=== PATIENT | female | born 1945 | race Caucasian/White ===

== ENCOUNTER 2023-08-28 06:18 | Inpatient (IN) | payer MEDICARE, OTHER, SELFPAY ==
--- NOTE | 2023-08-16 08:52 | CM ---
Addendum entered by Renate Rocha 08/16/23 09:35:
Spoke again with patient. She now prefers to have VN services initially.
Original Note:
Patient is scheduled for an elective L TKR on 08/28/23. Spoke with patient prior to surgery via telephone. Introduced role of Orthopedic Navigator. Patient reports that she lives alone in an apartment at [facility]. She currently functions
independently and uses a cane. She also has a raised toilet seat and built in shower seat. She has had VN services through [facility]. PCP is Vivek Auguste.
Discussed orthopedic program and post surgical plans. Reviewed anticipated length of stay and that goal is for her to return home at discharge. Also reviewed outpatient PT. Patient is in agreement with tentative plan and will go directly to
outpatient PT at [facility]. She states that her daughter will stay with her when she first goes home.
Patient will complete online education.
Plan: Orthopedic Navigator will remain available to assist with the care of patient and will reassess discharge needs after surgery.
[2023-08-18 13:20] VITALS: BMI 25.2
[2023-08-18 15:05] LABS: Hematocrit 39.3 % (37.0-47.0); Hemoglobin 13.6 g/dL (12.0-16.0); Mean Corp Hgb Conc. 34.6 g/dL (33.0-37.0); Mean Corpuscular Hgb 30.8 pg (27.0-31.0); Mean Corpuscular Volume 88.9 fL (81.0-99.0); Mean Platelet Volume 10.5 fL (7.4-10.4); Platelet Count 226 10^3/uL (130-400); Red Blood Cell Count 4.42 10^6/uL (4.20-5.40); Red Cell Dist. Width 13.5 % (11.5-14.5); White Blood Cell Count 5.6 10^3/uL (4.8-10.8)
[2023-08-18 15:22] LABS: ALT (SGPT) < 10 U/L (0-35); AST (SGOT) 29 U/L (14-36); Albumin 4.4 g/dl (3.5-5.0); Alkaline Phosphatase 60 U/L (38-126); Blood Urea Nitrogen 22 mg/dl (7-17); Carbon Dioxide 27 mmol/L (22-30); Chloride 104 mmol/L (98-107); Estimated Creatinine Clearance 51 ml/min; Glucose 96 mg/dl (70-99); Sodium 137 mmol/L (135-145); Total Bilirubin 0.4 mg/dl (0.2-1.3); Total Protein 7.2 g/dl (6.3-8.2); eGFR > 60.00
[2023-08-18 15:53] VITALS: BMI 25.2
[2023-08-19 11:41] LABS: Glycohemoglobin (HgbA1c) 5.8 % (4.0-5.6)
--- NOTE | 2023-08-21 13:57 | PTCARENOTE ---
Patient had questions regarding recent Monovisc injections and scheduled 08/24 for injections for macular degeneration- instructed to contact surgeons office to address these concerns.
[2023-08-28] VITALS (18 sets, daily range): BP systolic 103–148; BP diastolic 47–91; PULSE 71; O2SAT 96; BMI 25.2
[2023-08-28] MEDS: TYLENOL 650 MG PO ×3 (08:46→20:44)
[2023-08-28] MEDS: CELEBREX 200 MG PO (08:46)
[2023-08-28] MEDS: NORMOSOL-R 1000 IV (08:47)
[2023-08-28] MEDS: TYLENOL PO (12:00)
[2023-08-28] MEDS: ULTRAM PO (13:00)
[2023-08-28] MEDS: ROXICODONE 5 MG PO ×2 (13:52→17:25)
[2023-08-28] MEDS: DILAUDID 0.5 MG IV (15:24)
--- NOTE | 2023-08-28 16:30 | PTCARENOTE ---
pt admitted to room 2100 from the PACU at 1600. pt arrived awake and alert. Left knee surgical dressing w/scant drainage noted. Thigh TEDS in place, foot pumps in use. pt denies c/o left knee pains. +sensation, +movement, +pedal pulses B/L LE's.
pt oriented to room, bed controls and plan of care with verbalized understanding. tolerating liquids, due to void. will monitor.
[2023-08-28] MEDS: EFFEXOR XR 150 MG PO (18:48)
[2023-08-28] MEDS: ASPIRIN 325 MG PO (18:49)
[2023-08-28] MEDS: ANCEF 5 IV (18:49)
[2023-08-28] MEDS: ULTRAM 25 MG PO ×2 (18:50→20:45)
--- NOTE | 2023-08-28 18:54 | PTCARENOTE ---
pt assisted out of bed to bathroom with assistance of 1 and RW. pt voided large amount of urine and assisted to walk back to bed w/assist of 1 and RW. will observe.
[2023-08-28] MEDS: SENOKOT 17.1999999999999993 MG PO (20:43)
[2023-08-28] MEDS: BACTROBAN 2% OINTMENT 1 APPLIC NASAL (20:43)
[2023-08-28] MEDS: COLACE 100 MG PO (20:43)
[2023-08-28] MEDS: DECADRON 4 MG PO (20:43)
[2023-08-28] MEDS: NEURONTIN 300 MG PO (20:44)
[2023-08-28] MEDS: LIPITOR 20 MG PO (20:44)
[2023-08-28] MEDS: TORADOL 15 MG IV (20:44)
[2023-08-28] MEDS: PEPCID 20 MG PO (20:45)
[2023-08-28] MEDS: ROXICODONE 10 MG PO (20:45)
[2023-08-29] MEDS: TYLENOL PO (01:05)
[2023-08-29] MEDS: FLUSH (NSS) 2 FLUSH IV (02:29)
[2023-08-29] MEDS: ANCEF 5 IV (02:29)
[2023-08-29] MEDS: TYLENOL 650 MG PO ×3 (02:35→11:54)
[2023-08-29 03:26] VITALS: BP 99/43
[2023-08-29 07:35] VITALS: BP 112/64
[2023-08-29] MEDS: SENOKOT 17.1999999999999993 MG PO (07:56)
[2023-08-29] MEDS: COLACE 100 MG PO (07:56)
[2023-08-29] MEDS: BACTROBAN 2% OINTMENT 1 APPLIC NASAL (07:56)
[2023-08-29] MEDS: DECADRON 4 MG PO (07:56)
[2023-08-29] MEDS: MOBIC 15 MG PO (07:56)
[2023-08-29] MEDS: ASPIRIN 325 MG PO (07:56)
[2023-08-29] MEDS: EFFEXOR XR 150 MG PO (07:56)
[2023-08-29] MEDS: ULTRAM 25 MG PO ×2 (07:57→13:07)
[2023-08-29] MEDS: TORADOL 15 MG IV (07:58)
--- NOTE | 2023-08-29 08:47 | CM ---
Reviewed chart and held rounds with PT, OT and nursing. Patient admitted as planned for elective R TKR. Met with patient at bedside. Confirmed information previously obtained for assessment. Also discussed discharge plans. The plan is for patient to
return home at discharge. Her daughter will be staying with her tonight. Reviewed VN services including start of care (tentatively 08/29), services to be ordered (PT, OT, SN and APPLIED PSYCHOLOGY CHAIR) and frequency/duration of services. Options list provided and PAC
data reviewed. Patient selects VN.
Patient has a rolling walker, raised toilet seat with rails and a cane at home.
VN referral was completed and sent to [facility] through [employer] with request for start of care on 08/29. Confirmation received of their ability to accept case. customs entry clerk to fax discharge instructions to [facility] when complete.
Patient will use [facility] pharmacy for discharge prescriptions.
--- NOTE | 2023-08-29 08:52 | CM ---
Addendum entered by Renate Rocha 08/29/23 12:39:
Patient did well in therapy. Her daughter was present for OT session. patient has no concerns about going home.
Addendum entered by Renate Rocha 08/29/23 08:53:
Correction to below- patient's daughter will be staying with her for a week.
Original Note:
Reviewed chart and held rounds with PT, OT and nursing. Patient admitted as planned for elective L TKR. Met with patient at bedside. Confirmed information previously obtained for assessment. Also discussed discharge plans. The plan is for patient to
return home at discharge. Her daughter will be staying with her tonight. Reviewed VN services including start of care (tentatively 08/29), services to be ordered (PT and SN) and frequency/duration of services. Options list provided and PAC data
reviewed. Patient selects VN.
Patient has a rolling walker, shower seat, raised toilet seat with rails and a cane at home.
VN referral was completed and sent to [facility] through [facility] [facility] with request for start of care on 08/29. Confirmation received of their ability to accept case. agents' records clerk to fax discharge instructions to [facility] when complete.
Patient will use [facility] pharmacy for discharge prescriptions.+
--- NOTE | 2023-08-29 10:00 | W.PN.ORTHO ---
Today's Communication / Plan
-
d/c
Assessment
.
Distal Motor Intact: Yes
Dressing:
Clean, dry and intact.
Plan
.
Surgery / Date: Da Valencia 08/28/23
DVT Prophylaxis: Aspirin
Activity:
Out of bed.
PT/OT
Discharge Plan: Home w/ VN
Subjective
.
.:
Patient resting comfortably.
Vital Signs and Labs
.
Vital Signs and Labs:
Lab Results
08/18/23 13:35
08/18/23 13:35
Temp Pulse Resp BP Pulse Ox
98.2 F 74 16 112/64 93
08/29/23 07:35 08/29/23 07:35 08/29/23 07:35 08/29/23 07:35 08/29/23 07:35
Non-invasive Hgb result: 11.4
Physical Exam
-
HEENT: No pallor, cyanosis, or jaundice. Throat clear.
NECK: Supple. No JVD.
RESPIRATORY: Lungs clear to auscultation.
CVS: S1, S2 normal. RRR.� No murmur, rub or gallop.
ABDOMEN: Soft, non-tender. No distension. BS+/normal.
EXTREMITIES: strength equal, no calf pain with palpation
CORE FINISHER: AOx3. No focal deficits. funeral greeter grossly intact
--- NOTE | 2023-08-29 10:05 | W.DS.TRANS ---
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
-
Discharge Instructions:
Sleep Apnea Risk Low
Discharge Diagnosis/Procedures L TKA Dr. Valencia 08/28/23
Diet As tolerated
Activity With Walker
Driving Restrictions No driving
Bathing Restrictions OK to Shower
Other Services PT,VN
Instructions:
Stand-Alone Forms: Total Hip/Knee Replacement D/C
Changes to Home Medications: Yes
Discharge Medications:
DC Medications w/original date entered in [facility]
vitamin B complex 1 tab PO DAILY Supplement 09/11/20
atorvastatin 20 mg tablet 20 mg PO HS High Cholesterol 08/16/23
calcium carbonate 600 mg-vitamin D3 20 mcg (800 unit) chewable tablet (Caltrate 600 plus D) 1 tab PO BID Supplement 08/16/23
ibuprofen 200 mg tablet 600 mg PO Q6H PRN PAIN 08/16/23
venlafaxine 150 mg capsule,extended release 24 hr 150 mg PO DAILY Mental Health/Anxiety 08/16/23
vit C 250 mg-vit E 90 mg-zinc 40 mg-copper 1 [id number]-[id number]-[id number] capsule (PreserVision AREDS-2) 1 tab PO BID Supplement 08/16/23
mupirocin 2 % topical ointment 1 applic topical BID infection prevention #1 tube 08/18/23
acetaminophen 325 mg capsule (Tylenol) 650 mg PO QID #2 caps 08/29/23
aspirin 325 mg tablet 325 mg PO DAILY blood clot prevention #1 tab 08/29/23
dexamethasone 4 mg tablet 4 mg PO BID inflammation #6 tabs 08/29/23
docusate sodium 100 mg capsule (Colace) 100 mg PO BID stool softner #1 cap 08/29/23
famotidine 20 mg tablet 20 mg PO HS GI prophylaxis #30 tabs 08/29/23
gabapentin 300 mg capsule 300 mg PO HS sleep/pain #10 caps 08/29/23
magnesium hydroxide 400 mg/5 mL oral suspension (Milk of Magnesia) 30 ml PO HS PRN Constipation #1 mL 08/29/23
meloxicam 15 mg tablet 15 mg PO DAILY anti-inflammatory #14 tabs 08/29/23
oxycodone 5 mg tablet 5 - 10 mg PO Q6HPRN PRN 1 tab moderate-2 tabs severe pain #30 tabs 08/29/23
sennosides 8.6 mg tablet (Senokot) 17.2 mg PO BID laxative #2 tabs 08/29/23
Home Medication Changes
dexamethasone 4 mg tablet 4 mg PO BID inflammation #6 tabs 08/29/23
famotidine 20 mg tablet 20 mg PO HS GI prophylaxis #30 tabs 08/29/23
gabapentin 300 mg capsule 300 mg PO HS sleep/pain #10 caps 08/29/23
meloxicam 15 mg tablet 15 mg PO DAILY anti-inflammatory #14 tabs 08/29/23
oxycodone 5 mg tablet 5 - 10 mg PO Q6HPRN PRN 1 tab moderate-2 tabs severe pain #30 tabs 08/29/23
Pending Results: No
[2023-08-29 10:19] VITALS: BP 130/77
[2023-08-29 11:23] VITALS: BP 148/71
[2023-08-29 12:25] VITALS: BP 140/110; PULSE 70; O2SAT 93
== END 2023-08-29 13:39 | disposition home health service (06) | DRG 470 ==
LOC: 2 SOUTH 06:18
PROVIDERS: ADMITTING PHYSICIAN Specialist; FAMILY PHYSICIAN Family Medicine
PROC: 0SRD0J9 Replacement of Left Knee Joint with Synthetic Substitute, Cemented, Open Approach (ICD-10-PCS; 2023-08-28)
DX: M17.12 Unilateral primary osteoarthritis, left knee (principal); I10 Essential (primary) hypertension; E78.5 Hyperlipidemia, unspecified; M85.859 Other specified disorders of bone density and structure, unspecified thigh; G57.91 Unspecified mononeuropathy of right lower limb; J44.9 Chronic obstructive pulmonary disease, unspecified; F32.A Depression, unspecified; F41.9 Anxiety disorder, unspecified; Z87.891 Personal history of nicotine dependence
CPT/HCPCS: 36415; 73560; 80053; 83036; 85027; 87070; 93005; 97110; 97116; 97162; 97166; 97530; C1713; C1776

== ENCOUNTER → 2023-10-04 11:55 | Outpatient (REF) | payer MEDICARE, OTHER, SELFPAY ==
[2023-10-04 12:57] LABS: % Basophils 1.4 % (0-2); % Eosinophils 14.1 % (0-6); % Immature Granulocytes 0.2 % (0-0.5); % Lymphocytes 30.6 % (20.5-51.1); % Monocytes 11.2 % (1.7-9.3); % Neutrophils 42.5 % (42.2-75.2); Absolute Basophils 0.1 10^3/uL (0-0.2); Absolute Eosinophils 0.7 10^3/uL (0-0.7); Absolute Lymphocytes 1.6 10^3/uL (1.2-3.4); Absolute Monocytes 0.6 10^3/uL (0.1-0.6); Absolute Neutrophils 2.2 10^3/uL (1.4-6.5); Hematocrit 40.2 % (37.0-47.0); Hemoglobin 13.3 g/dL (12.0-16.0); Mean Corp Hgb Conc. 33.1 g/dL (33.0-37.0); Mean Corpuscular Volume 93.7 fL (81.0-99.0); Mean Platelet Volume 10.5 fL (7.4-10.4); Nucleated Red Blood Cells % 0 %; Platelet Count 287 10^3/uL (130-400); Red Blood Cell Count 4.29 10^6/uL (4.20-5.40); Red Cell Dist. Width 14.2 % (11.5-14.5); White Blood Cell Count 5.1 10^3/uL (4.8-10.8)
[2023-10-04 13:40] LABS: ALT (SGPT) < 10 U/L (0-35); AST (SGOT) 25 U/L (14-36); Albumin 4.6 g/dl (3.5-5.0); Alkaline Phosphatase 80 U/L (38-126); Blood Urea Nitrogen 17 mg/dl (7-17); Calcium 9.8 mg/dl (8.4-10.2); Carbon Dioxide 26 mmol/L (22-30); Chloride 101 mmol/L (98-107); Glucose 104 mg/dl (70-99); Potassium 4.3 mmol/L (3.5-5.1); Sodium 140 mmol/L (135-145); Total Bilirubin 0.6 mg/dl (0.2-1.3); Total Protein 7.3 g/dl (6.3-8.2); eGFR > 60.00
== END ==
LOC: OLABPV 11:55
PROVIDERS: ATTENDING PHYSICIAN Family Medicine
DX: Z96.652 Presence of left artificial knee joint (principal); R73.02 Impaired glucose tolerance (oral); R53.83 Other fatigue
CPT/HCPCS: 36415; 80053; 85025

== ENCOUNTER → 2023-12-13 07:53 | Outpatient (REF) | payer MEDICARE, OTHER, SELFPAY | LOC: WDC 07:53 | PROVIDERS: ATTENDING PHYSICIAN Family Medicine Geriatric Medicine; FAMILY PHYSICIAN Family Medicine | DX: R92.8 Other abnormal and inconclusive findings on diagnostic imaging of breast (principal) | CPT/HCPCS: 76642 ==

== ENCOUNTER → 2024-05-31 11:15 | Outpatient (REF) | payer MEDICARE, OTHER, SELFPAY ==
[2024-05-31 12:47] LABS: % Basophils 1.2 % (0-2); % Eosinophils 5.5 % (0-6); % Immature Granulocytes 0.4 % (0-0.5); % Lymphocytes 24.5 % (20.5-51.1); % Monocytes 11.2 % (1.7-9.3); % Neutrophils 57.2 % (42.2-75.2); Absolute Basophils 0.1 10^3/uL (0-0.2); Absolute Eosinophils 0.3 10^3/uL (0-0.7); Absolute Lymphocytes 1.2 10^3/uL (1.2-3.4); Absolute Monocytes 0.6 10^3/uL (0.1-0.6); Absolute Neutrophils 2.9 10^3/uL (1.4-6.5); Hematocrit 45.6 % (37.0-47.0); Hemoglobin 14.6 g/dL (12.0-16.0); Mean Corpuscular Hgb 29.9 pg (27.0-31.0); Mean Corpuscular Volume 93.3 fL (81.0-99.0); Mean Platelet Volume 10.3 fL (7.4-10.4); Nucleated Red Blood Cells % 0 %; Platelet Count 229 10^3/uL (130-400); Red Blood Cell Count 4.89 10^6/uL (4.20-5.40); Red Cell Dist. Width 13.5 % (11.5-14.5); White Blood Cell Count 5.1 10^3/uL (4.8-10.8)
[2024-05-31 13:05] LABS: ALT (SGPT) < 10 U/L (0-35); AST (SGOT) 30 U/L (14-36); Albumin 4.7 g/dl (3.5-5.0); Alkaline Phosphatase 66 U/L (38-126); Blood Urea Nitrogen 20 mg/dl (7-17); Calcium 9.6 mg/dl (8.4-10.2); Carbon Dioxide 30 mmol/L (22-30); Chloride 102 mmol/L (98-107); Glucose 97 mg/dl (70-99); HDL Cholesterol 77 mg/dl; LDL Cholesterol, Calculated 88 mg/dl; Potassium 4.4 mmol/L (3.5-5.1); Sodium 142 mmol/L (135-145); Total Bilirubin 0.5 mg/dl (0.2-1.3); Total Cholesterol 180 mg/dl (50-199); Total Protein 7.4 g/dl (6.3-8.2); Triglyceride 76 mg/dl (10-149); Very Low Density Lipoprotein 15 mg/dl (0-30); eGFR > 60.00
[2024-05-31 13:36] LABS: TSH Reflex To Free T4 2.38 uIU/ml (0.47-4.68)
[2024-05-31 14:00] LABS: Glycohemoglobin (HgbA1c) 5.7 % (4.0-5.6)
== END ==
LOC: OLABPV 11:15
PROVIDERS: ATTENDING PHYSICIAN Family Medicine
DX: R73.02 Impaired glucose tolerance (oral) (principal); Z96.652 Presence of left artificial knee joint; Z13.29 Encounter for screening for other suspected endocrine disorder; E78.2 Mixed hyperlipidemia
CPT/HCPCS: 36415; 80053; 80061; 83036; 84443; 85025

== ENCOUNTER → 2024-06-05 11:43 | Outpatient (REF) | payer MEDICARE, OTHER, SELFPAY | LOC: WDC 11:43 | PROVIDERS: ATTENDING PHYSICIAN Internal Medicine Hematology & Oncology; FAMILY PHYSICIAN Family Medicine | DX: Z12.31 Encounter for screening mammogram for malignant neoplasm of breast (principal) | CPT/HCPCS: 77063; 77067 ==

== ENCOUNTER → 2024-06-25 12:11 | Outpatient (REF) | payer MEDICARE, OTHER, SELFPAY | LOC: RAD 12:11 | PROVIDERS: ATTENDING PHYSICIAN Nurse Practitioner Adult Health; FAMILY PHYSICIAN Family Medicine | DX: R05.1 Acute cough (principal); J43.8 Other emphysema; J47.9 Bronchiectasis, uncomplicated | CPT/HCPCS: 71046 ==

== ENCOUNTER → 2024-11-19 08:48 | Outpatient (REF) | payer MEDICARE, OTHER, SELFPAY | LOC: WDC 08:48 | PROVIDERS: ATTENDING PHYSICIAN Family Medicine Geriatric Medicine; FAMILY PHYSICIAN Family Medicine; REFERRING PHYSICIAN Internal Medicine Hematology & Oncology | DX: R92.333 Mammographic heterogeneous density, bilateral breasts (principal) | CPT/HCPCS: 76641 ==

== ENCOUNTER → 2025-06-11 11:41 | Outpatient (REF) | payer MEDICARE, OTHER, SELFPAY | LOC: WDC 11:41 | PROVIDERS: ATTENDING PHYSICIAN Internal Medicine Hematology & Oncology; FAMILY PHYSICIAN Family Medicine | DX: Z12.31 Encounter for screening mammogram for malignant neoplasm of breast (principal) | CPT/HCPCS: 77063; 77067 ==